=== PATIENT | female | born 1960 | race African-American/Black ===

== ENCOUNTER 2020-04-10 16:40 | Emergency (ER) | payer OTHER ==
[~2020-04-10] VITALS: Ht 160 cm; Wt 63.5 kg
[2020-04-10 16:48] VITALS: BP 149/108
[2020-04-10] MEDS ORDERED: BACTRIM DS TAB1 EACH PO (18:17)
== END 2020-04-10 19:22 | disposition home or self-care (01) ==
LOC: ER 16:40
DX: S60.351A Superficial foreign body of right thumb, initial encounter (principal); L03.011 Cellulitis of right finger; I10 Essential (primary) hypertension; Z91.048 Other nonmedicinal substance allergy status; X58.XXXA Exposure to other specified factors, initial encounter; Y93.89 Activity, other specified; Y92.89 Other specified places as the place of occurrence of the external cause; Y99.8 Other external cause status

== ENCOUNTER 2020-04-23 06:38 | Observation (INO) | payer OTHER ==
[~2020-04-23] VITALS: Ht 160 cm; Wt 58.5 kg
[~2020-04-23 06:38] MED LIST: BACTRIM DS TAB1 EACH PO
[2020-04-23 06:48] VITALS: BP 170/114
[2020-04-23] MEDS ORDERED: NORVASC 2.5 MG2.5 M1 PO (07:12)
[2020-04-23 07:39] LABS: BASOPHILS 1.2 % (0.0-2.0); EOSINOPHILS 0.7 % (0.0-3.0); HEMATOCRIT 42.6 % (37.0-47.0); HEMOGLOBIN 14.4 gm/dL (12.0-15.0); MCH 28.8 pg (26.0-34.0); MCHC 33.7 g/dL (28.0-37.0); MCV 85.5 fL (80.0-100.0); MONOCYTES 11.7 % (1.0-8.0); POLYS 69.4 % (36.0-66.0); RBC 4.98 mil/uL (4.20-5.00); RDW 12.8 % (10.5-14.5); WBC 7.2 thou/uL (4.0-11.0)
[2020-04-23 07:52] LABS: ALBUMIN 4.4 g/dL (3.4-5.0); CALCIUM 10.2 mg/dL (8.5-10.1); TOTAL BILIRUBIN 0.7 mg/dL (0.2-1.0)
[2020-04-23 07:58] LABS: POTASSIUM 2.1 mmol/L (3.5-5.1)
[2020-04-23 08:19] LABS: MAGNESIUM 2.1 mg/dL (1.8-2.4)
--- NOTE | 2020-04-23 09:06 | EKG ---
[place] [address] [address] [facility] [place] [address] ELECTROCARDIOGRAM REPORT Name: MERVAT CARRASQUILLO Room #: REG MINOO Brandt#: [id number] Admission: 04/23/20 Attend Phys: Discharge: Date of : 64 Report #: [id number] [facility] ED Test Date: 2020-04-23 Test Time: 08:14:55 Pat Name: MERVAT CARRASQUILLO Department: Room: Gender: F Audit Officer: carmen : 1960 Requested By: Yamileth Espinosa Order Number: [id number] MD: Manuel Ventura Measurements Intervals [place] Rate: 45 P: 60 NC: 163 QRS: 26 QRSD: 99 T: 168 QT: 507 QTc: 439 Interpretive Statements Sinus bradycardia LVH with secondary repolarization abnormality Anterior Q waves, possibly due to LVH No previous ECG available for comparison Electronically Signed On 04-23-2020 9:06:21 EDGE SANDER by Manuel Ventura [email or web address] <ELECTRONICALLY SIGNED> By: Manuel Ventura MD, [facility] 04/23/20905 0814 3 Manuel Ventura MD, FACC /EPI
[2020-04-23 09:26] LABS: URINE BILIRUBIN NEGATIVE (Negative); URINE BLOOD TRACE (Negative); URINE CLARITY CLEAR; URINE COLOR YELLOW; URINE GLUCOSE-RANDOM* NEGATIVE (Negative); URINE KETONES TRACE (Negative); URINE LEUKOCYTES-REFLEX NEGATIVE (Negative); URINE NITRITE-REFLEX NEGATIVE (Negative); URINE PROTEIN (DIPSTICK) NEGATIVE (Negative); URINE UROBILINOGEN 0.2 E.U./dl (0.2-1.0)
[2020-04-23 11:03] LABS: PLATELET COUNT 378 thou/uL (150-400); PLATELET ESTIMATE NORMAL
[2020-04-23 12:51] LABS: FOLIC ACID 30.2 ng/mL (8.6-58.9)
[2020-04-23 16:57] LABS: ALBUMIN 3.6 g/dL (3.4-5.0); CALCIUM 8.8 mg/dL (8.5-10.1); CREATININE 1.4 mg/dL (0.6-1.0); TOTAL BILIRUBIN 0.6 mg/dL (0.2-1.0); TOTAL PROTEIN 7.1 g/dL (6.4-8.2)
[2020-04-23 17:02] LABS: POTASSIUM 2.5 mmol/L (3.5-5.1)
[2020-04-23 18:10] VITALS: BP 163/91
[2020-04-23 18:51] VITALS: BP 145/81
--- NOTE | 2020-04-23 19:58 | NUR ---
PATIENT BROUGHT UP FROM ED AT SHIFT CHANGE. PLACED ON THE MONITOR. REPORT GIVEN TO ELLIE NAVARRO RN.
[2020-04-23 20:31] VITALS: BP 157/98
[2020-04-23] MEDS ORDERED: ATORVASTATIN CA80 MG PO (22:45)
[2020-04-23] MEDS ORDERED: AMLODIPINE BESY10 MG PO (22:45)
[2020-04-23] MEDS ORDERED: EPLERENONE50 MG PO (22:47)
[2020-04-23] MEDS ORDERED: K-DUR 20 MEQ T20 MEQ PO (22:47)
--- NOTE | 2020-04-24 01:05 | NUR ---
PT ADMITTED FROM ED W/SBO AND HYPOKALEMIA.A/OX3.VSS.ORIENTED TO RM AND UNIT ACTIVITIES.MED RECONCILLED AND ORDERS ACKNOWLEDGED.PT UPDATED WITH POC ADN IN AGREEMENT.SR/SB ON MONITOR.RA W/O RESP DISTRESS.NG TUBE TO LIS.PLACEMENT VERIFIED BY AUSCULATION.UP CONNIE TO BSC.GAIT STEADY.ADMISSION ASSESSMENT COMPLETED DOCUMENTED.SEE INTERVENTIONS.PT DENIES N/V OR ABDOMINAL PAIN.BOWEL SOUNDS ACTIVE X 4 QUADS,SOFT AND NON-TENDER.DENIES N/V.ADMITS TO PASSING FLATUS AND BELCHING.NPO FOR NOW.PT DENIES ANY CONCERNS AT THIS TIME.
[2020-04-24 05:45] LABS: EOSINOPHILS 2.3 % (0.0-3.0); HEMATOCRIT 37.5 % (37.0-47.0); MCH 28.7 pg (26.0-34.0); MCHC 32.8 g/dL (28.0-37.0); MCV 87.3 fL (80.0-100.0); MONOCYTES 12.9 % (1.0-8.0); PLATELET COUNT 325 thou/uL (150-400); POLYS 48.8 % (36.0-66.0); RBC 4.29 mil/uL (4.20-5.00); RDW 12.9 % (10.5-14.5); WBC 6.1 thou/uL (4.0-11.0)
[2020-04-24 05:54] LABS: HEMOGLOBIN 12.3 gm/dL (12.0-15.0)
[2020-04-24 06:00] VITALS: BP 137/98
[2020-04-24 06:15] LABS: CALCIUM 9.2 mg/dL (8.5-10.1); CREATININE 1.4 mg/dL (0.6-1.0); MAGNESIUM 1.9 mg/dL (1.8-2.4)
[2020-04-24 06:25] LABS: POTASSIUM 2.6 mmol/L (3.5-5.1)
[2020-04-24 09:48] VITALS: BP 137/98
--- NOTE | 2020-04-24 13:57 | NUR ---
PT ADMITTED RELATED TO ABO, HYPOKALEMIA. CM REVEIWED CHART AND SPOKE WITH CARE TEAM. CM ELIZABETH AND CINTIAEK WITH PT OVER THE PHONE THIS DAY. PT APPEARED TO BE A&O X4. CM ROLE INTRODUCED. PT INDICATED SHE RESIDES IN A HOUSE WITH HER BOYFRIEND WITH 2 STEPS TO ENTER AND NO STEPS SHE USES INSIDE. SHE INDICATED THAT SHE HD BEEN INDEPENDENT WIHT GAIT AND ADLS MANAGER RETAIL. PT INDICATED NO PCP BUT INTERESTED IN ESTABLISHING HERE AT [facility]. CM PROVIDED LIST OF PROVIDERS. PT INDICATED SHE PLANS TO RETURN HOME ONCE MEDICALLY STABLE. PT HAAD NG BUT HAS SINCE BEEN REMOVER AND DIET PROGRESSED TO CLD. AWAITING PT HAVING BM. ANTICIPATE NO NEEDS UPON DC. CM TO FOLLOW INDICATED WITH DC PLANNING.
--- NOTE | 2020-04-24 17:08 | NUR ---
Assumed pt care at 7am.Pt in bed resting.Assessment completed.Pt wanted to know when Doctor will be rounding today.Dr Escoto and Velasquez here,order noted. Clear liq given and well tolerated.Pt pulled Ng tube byself stated that Dr Eng said it was okay to dc.Pt ambulated several times in hallways independent .Good endurance noted.Pt reported bowel movement but flushed without seen by any nsg staff.Potassium level at 1400 after 2 bags given earlier this am reported to Dr Escoto.Order noted.Will continue to monitor.
[2020-04-24 17:46] VITALS: BP 142/87
== END 2020-04-24 19:12 | disposition left against medical advice (07) ==
LOC: ER 06:38 → 4W 09:57 → EROBS 09:57 → 4W 09:57
PROVIDERS: Emergency Medicine; Nurse Practitioner; ADMIT Hospitalist; ATTEND Hospitalist
DX: K56.601 Complete intestinal obstruction, unspecified as to cause (principal); E87.6 Hypokalemia; R11.2 Nausea with vomiting, unspecified; I12.9 Hypertensive chronic kidney disease with stage 1 through stage 4 chronic kidney disease, or unspecified chronic kidney disease; N18.9 Chronic kidney disease, unspecified; F17.210 Nicotine dependence, cigarettes, uncomplicated; Z91.048 Other nonmedicinal substance allergy status

== ENCOUNTER 2020-08-31 16:44 | Inpatient (IN) | payer OTHER ==
[~2020-08-31] VITALS: Ht 160 cm; Wt 56.2 kg
[~2020-08-31 16:44] MED LIST changes: +AMLODIPINE BESY10 MG PO; +ATORVASTATIN CA80 MG PO; +EPLERENONE50 MG PO; +K-DUR 20 MEQ T20 MEQ PO; +NORVASC 2.5 MG2.5 M1 PO
[2020-08-31 16:54] VITALS: BP 151/91
[2020-08-31 17:55] LABS: HEMATOCRIT 38.3 % (37.0-47.0); HEMOGLOBIN 12.6 gm/dL (12.0-15.0); MCH 28.7 pg (26.0-34.0); RBC 4.4 mil/uL (4.20-5.00); RDW 12.8 % (10.5-14.5); WBC 6.1 thou/uL (4.0-11.0)
[2020-08-31 18:11] LABS: ALBUMIN 3.6 g/dL (3.4-5.0); CALCIUM 9.1 mg/dL (8.5-10.1); CREATININE 1.2 mg/dL (0.6-1.0); TOTAL BILIRUBIN 0.4 mg/dL (0.2-1.0); TOTAL PROTEIN 7.5 g/dL (6.4-8.2)
[2020-08-31 18:16] LABS: POTASSIUM 2.5 mmol/L (3.5-5.1)
[2020-08-31 18:38] LABS: URINE BILIRUBIN NEGATIVE (Negative); URINE BLOOD TRACE (Negative); URINE CLARITY CLEAR; URINE COLOR YELLOW; URINE GLUCOSE-RANDOM* NEGATIVE (Negative); URINE KETONES NEGATIVE (Negative); URINE NITRITE-REFLEX NEGATIVE (Negative); URINE PROTEIN (DIPSTICK) NEGATIVE (Negative); URINE UROBILINOGEN 0.2 E.U./dl (0.2-1.0)
[2020-08-31 18:40] LABS: URINE LEUKOCYTES-REFLEX 2+ (Negative)
[2020-08-31 18:48] LABS: BACTERIA-REFLEX 1-9 Few /HPF (None Seen); CASTS None Seen /LPF (None Seen); CRYSTALS None Seen /LPF (None Seen); SQUAMOUS 0-3 Few /LPF (0-3); URINE RBC 1-2 Rare /HPF (NONE SEEN); URINE WBC-REFLEX 6-15 Few /HPF (0-5)
[2020-08-31 20:13] VITALS: BP 151/91
[2020-09-01 00:57] VITALS: BP 143/88
[2020-09-01 04:45] VITALS: BP 114/77
[2020-09-01 04:50] LABS: CALCIUM 8.3 mg/dL (8.5-10.1); MAGNESIUM 1.8 mg/dL (1.8-2.4)
[2020-09-01 04:51] LABS: POTASSIUM 2.3 mmol/L (3.5-5.1)
--- NOTE | 2020-09-01 06:04 | NUR ---
ASSUMED CARE OF PATIENT FROM ER. ADMISSION COMPLETE. PATIENT ADMITS TO USING CRACK WITHIN THE LAST WEEK. STATES SIGNIFICANT WEIGHT LOSS. C/O SLIGHT PAIN IN ABDOMEN, FREQUENTLY REQUESTING ICE AND SOMETHING TO EAT AND DRINK. STEAK KNIFE, SCREWDRIVER, CIGARETTES, SILK HANGER SENT TO SECURITY, PATIENT SIGNED PAPERWORK, RECIEPT IN CHART. PATIENT ALSO SAID SHE CALLED HER TO TAKE HER HOME, BUT HE REFUSED. SHE HAS AGREED TO STAY FOR NOW. POTASSIUM REMAINS CRITICALLY LOW, ROSA M MOELLER NOTIFIED, ORDERS RECIEVED. POC GOALS ESTABLISHED.
[2020-09-01 08:15] VITALS: BP 140/81
--- NOTE | 2020-09-01 11:59 | NUR ---
ASSESSMENT CHARTED - MEDS PER APR - PT GETTING K+ BOLUS IV - REMAINED NPO. PT'S SIG OTHER CAME INTO VISIT AND PT GOT UPSET AND LEFT AMA. ENCOURAGED PT TO STAY AND SHE WOULD NOT - 2/3 OF FINAL k+ BOLUS INFUSED - IV'S AND MONITOR REMOVED PRIOR TO PT LEAVING - AMA FORM SIGNED - PT ESCORTED TO THE ER. CAB COUCHER PROVIDED - BELONGINGS RETURNED TO PT FROM SECCURITY.
[2020-09-02 05:36] LABS: GLYCOHEMOGLOBIN (HGB A1C) 5.2 % (4.8-5.6)
== END 2020-09-01 11:30 | disposition left against medical advice (07) | DRG 389 ==
LOC: ER 16:44 → EROBS 19:22 → 2N 20:41
PROVIDERS: Nurse Practitioner Family; ADMIT Hospitalist; ATTEND Hospitalist
DX: K56.609 Unspecified intestinal obstruction, unspecified as to partial versus complete obstruction (principal); N30.01 Acute cystitis with hematuria; E27.40 Unspecified adrenocortical insufficiency; E78.5 Hyperlipidemia, unspecified; I12.9 Hypertensive chronic kidney disease with stage 1 through stage 4 chronic kidney disease, or unspecified chronic kidney disease; R73.9 Hyperglycemia, unspecified; E87.6 Hypokalemia; N18.9 Chronic kidney disease, unspecified; Z53.21 Procedure and treatment not carried out due to patient leaving prior to being seen by health care provider; Z79.899 Other long term (current) drug therapy; Z91.048 Other nonmedicinal substance allergy status
CPT/HCPCS: 10081